=== PATIENT | male | born 1980 | race Hispanic/Latino ===

== ENCOUNTER 2016-08-25 17:24 | Emergency (ER) | payer OTHER ==
[2016-08-25 18:19] VITALS: BP 120/79; PULSE 56; RESP 20; TEMP 97.8; O2SAT 98
[2016-08-25] MEDS ORDERED: Oxycodone/Acetaminophen 5/325 mg Tab PO STA (18:36)
[2016-08-25] MEDS ORDERED: Oxycodone/Acetaminophen 5/325 mg Tab ONE (18:44)
--- NOTE | 2016-08-25 18:44 | C.PDOC ---
History Of Present Illness 36 yo male come in for evaluation of Right shoulder pain intermittent for past year, worse for past few weeks. pain is localized over Right side of neck/Right shoulder, worse with Right shoulder movement. Pt denies known trauma or injury, fever, chills, headache, dizziness, CP, SOB, dyspnea, diaphoresis, palpitation, denies weakness, sensory or vascular deficits to Right arm. Ambulate to Ed for evaluation, appears in pain. Time Seen by Provider: 08/25/16 18:08 Chief Complaint (Nursing): Upper Extremity Problem/Injury History Per: Patient History/Exam Limitations: no limitations Onset/Duration Of Symptoms: Intermittent Episodes, Other (1 year) Current Symptoms Are (Timing): Still Present Quality: "Pain" Severity: Moderate Exacerbating Factor(s): Movement Recent travel outside of the [place]: No Past Medical History Reviewed: Historical Data, Nursing Documentation, Vital Signs Vital Signs: Last Vital Signs Temp 97.8 F 08/25/16 18:14 Pulse 56 L 08/25/16 18:14 Resp 20 08/25/16 18:14 BP 120/79 08/25/16 18:14 Pulse Ox 98 08/25/16 18:53 Family History: States: Unknown Family Hx - Social History Hx Tobacco Use: No Hx Alcohol Use: Yes Hx Substance Use: No - Immunization History Hx Tetanus Toxoid Vaccination: Yes Hx Influenza Vaccination: Yes Hx Pneumococcal Vaccination: No Review Of Systems Except As Marked, All Systems Reviewed And Found Negative. Constitutional: Negative for: Fever, Chills, Other (Diaphoresis) Cardiovascular: Negative for: Chest Pain, Palpitations Respiratory: Negative for: Shortness of Breath, Other (Dyspnea) Musculoskeletal: Positive for: Shoulder Pain (Right shoulder pain). Negative for: Neck Pain, Back Pain Neurological: Negative for: Weakness, Numbness, Headache, Dizziness Physical Exam - Physical Exam Appears: Well, Non-toxic, No Acute Distress Skin: Normal Color, Warm, No Rash, No Ecchymosis Head: Normacephalic Eye(s): bilateral: PERRL Oral Mucosa: Moist Throat: Normal, No Erythema, No Exudate Neck: Normal ROM, Trachea Midline, Paracervical Tenderness (Right sided lateral neck tenderness over trapezium muscle extend down to Right upper back with mild muscle spasm. No midline tenderness.), Supple Chest: Symmetrical, No Deformity Cardiovascular: Rhythm Regular Respiratory: No Stridor, No Wheezing Back: No Vertebral Tenderness Extremity: Normal ROM (moderate discomfort on Right shoulder abduction and extension due to pain. Otherwise, FAROM of B/L UEs. No neurovascular deficits.) , Tenderness (moderate tenderness over rotator cuff muscle Right shoulder.), No Deformity, No Swelling Neurological/Psych: Oriented x3, Normal Speech, Normal Motor, Normal Sensation, Normal Reflexes ED Course And Treatment O2 Sat by Pulse Oximetry: 98 Pulse Ox Interpretation: Normal - Other Rad Right shoulder xray X-Ray: Interpreted by Me, Viewed By Me Interpretation: no acute fx or dislocation Progress Note: On re-eval, pt is aferile, hemodynamicaly stable. Non-toxic. Ambulatory in ED with stable gait. neck: (-) midline tenderness. CVS: (+)S1S2 , reg. Lungs: CTA B/L, BS equal B/L. RUE: exam c/w rotator cuff tendonitis. No neurovascular deficits, no deformity. neurologicaly intact. xray of Right shoulder review and appears normal study. Pt advised. Sling, analgesics given. re.f to f/u with Ortho in 2-3 days for re-eval. return if any new changes. Disposition Counseled Patient/Family Regarding: Studies Performed, Diagnosis, Need For Followup, Rx Given - Disposition Referrals: Joe Sandhu III, MD [Staff Provider] - [facility] [place] [Outside] [facility] [Outside] [facility] [Outside] Disposition: HOME/ ROUTINE Disposition Time: 18:46 Condition: STABLE Additional Instructions: LIGHT DUTY TO RIGHT SHOULDER/ARM AVOID HEAVY LIFTING, ETC TAKE PAIN MEDICATION PRESCRIBED NEED FOLLOW UP WITH ORTHOPEDIST IN 2-3 DAYS FOR RE-EVALUATION. RETURN TO ED IF ANY WORSENING OR NEW CHANGES. Prescriptions: Ibuprofen [Motrin Tab] 400 mg PO Q6 #14 tab Methocarbamol [Robaxin] 500 mg PO TID #14 tab traMADol [Ultram] 50 mg PO TID #7 tab Instructions: Rotator Cuff Tendinitis (ED) Forms: Work Excuse Print Language: ICELANDIC - Clinical Impression Clinical Impression: Rotator cuff tendonitis - Scribe Statement The provider has reviewed the documentation as recorded by the Scribe Sherman Loomis All medical record entries made by the Scribe were at my direction and personally dictated by me. I have reviewed the chart and agree that the record accurately reflects my personal performance of the history, physical exam, medical decision making, and the department course for this patient. I have also personally directed, reviewed, and agree with the discharge instructions and disposition.
--- NOTE | 2016-08-26 12:50 | RAD ---
PROCEDURE: Radiographs of the Right Shoulder HISTORY: pain No antecedent history of trauma provided. COMPARISON: No prior. FINDINGS: BONES: Normal. No fracture. JOINTS: Normal. Glenohumeral and acromioclavicular joints preserved. No osteoarthritis. SOFT TISSUES: Normal. OTHER FINDINGS: None. IMPRESSION: Normal radiographs of the right shoulder. Concordant results with the preliminary interpretation rendered by the emergency department physician procedure.
== END 2016-08-25 19:10 | disposition home or self-care (01) ==
LOC: C.ER 17:24
DX: M77.9 Enthesopathy, unspecified (principal)

== ENCOUNTER 2018-01-11 17:21 | Emergency (ER) | payer SELFPAY ==
[2018-01-11 17:44] VITALS: BMI 29.4
[2018-01-11 17:46] VITALS: RESP 18
[2018-01-11 18:39] LABS: SQUAMOUS EPITHIAL < 1 /hpf (0-5); URINE BILIRUBIN NEGATIVE (NEGATIVE); URINE BLOOD NEGATIVE (NEGATIVE); URINE CLARITY Clear (Clear); URINE COLOR Yellow (YELLOW); URINE GLUCOSE (UA) NORMAL (Normal); URINE LEUKOCYTE ESTERASE NEG Leu/uL (Negative); URINE PROTEIN NEGATIVE (NEGATIVE); URINE UROBILINOGEN NORMAL mg/dL (0.2-1.0)
[2018-01-11] MEDS ORDERED: Sodium Chloride 0.9% 1,000 ML IV ONE (19:10)
[2018-01-11 19:30] LABS: BASO % 0.6 % (0.0-2.0); EOS % 0.7 % (0.0-4.0); LYMPH # 2.2 K/uL (1.0-4.3); LYMPH % 35.5 % (20.0-40.0); MEAN CELL VOLUME 87.4 fL (80.0-94.0); MEAN CORPUSCULAR HEMOGLOBIN 30.5 pg (27.0-31.0); MEAN CORPUSCULAR HGB CONC 34.8 g/dL (33.0-37.0); MEAN PLATELET VOLUME 8.8 fL (7.2-11.7); MONO # 0.5 K/uL (0.0-0.8); MONO % 7.8 % (0.0-10.0); NEUT # 3.4 K/uL (1.8-7.0); NEUT % 55.4 % (50.0-75.0); NRBC % 0.1 % (0.0-2.0); RBC 4.61 Mil/uL (4.40-5.90); RED CELL DISTRIBUTION WIDTH 13.5 % (11.5-14.5); WHITE BLOOD COUNT 6.1 K/uL (4.8-10.8)
[2018-01-11 19:44] LABS: ALB/GLOB RATIO 1.7 (1.0-2.1); ALBUMIN 4.6 g/dL (3.5-5.0); ALT/SGPT 28 U/L (21-72); AST/SGOT 32 U/L (17-59); BLOOD UREA NITROGEN 15 mg/dL (9-20); CALCIUM 9.1 mg/dl (8.6-10.4); GFR NON-AFRICAN AMERICAN > 60; LIPASE 92 U/L (23-300)
[2018-01-11] MEDS ORDERED: Iohexol 300 100 ML IJ ONE (20:07)
--- NOTE | 2018-01-11 21:16 | C.PDOC ---
History Of Present Illness 37 y/o male presents to the ED complaining of abdominal pain for past couple weeks. Pain is localized to the left lower quadrant. He denies any associated nausea, vomiting, diarrhea, hematuria, hematochezia, or fever. No recent travel. No sick contacts. Time Seen by Provider: 01/11/18 19:05 Chief Complaint (Nursing): Abdominal Pain History Per: Patient History/Exam Limitations: no limitations Onset/Duration Of Symptoms: Days Current Symptoms Are (Timing): Still Present Location Of Pain/Discomfort: LLQ Alleviating Factors: None Past Medical History Reviewed: Historical Data, Nursing Documentation, Vital Signs Vital Signs: Last Vital Signs Temp 98.2 F 01/11/18 17:44 Pulse 58 L 01/11/18 17:44 Resp 18 01/11/18 17:44 BP 118/77 01/11/18 17:44 Pulse Ox 98 01/11/18 17:44 Family History: States: Unknown Family Hx - Social History Hx Tobacco Use: No Hx Alcohol Use: Yes Hx Substance Use: No - Immunization History Hx Tetanus Toxoid Vaccination: Yes Hx Influenza Vaccination: Yes Hx Pneumococcal Vaccination: No Review Of Systems Except As Marked, All Systems Reviewed And Found Negative. Constitutional: Negative for: Fever, Chills Gastrointestinal: Positive for: Abdominal Pain. Negative for: Nausea, Vomiting, Diarrhea, Hematochezia Genitourinary: Negative for: Dysuria, Hematuria Physical Exam - Physical Exam Appears: Non-toxic, No Acute Distress Skin: Warm, Dry Head: Atraumatic, Normacephalic Eye(s): bilateral: Normal Inspection, PERRL, EOMI Oral Mucosa: Moist Neck: Normal ROM Chest: Symmetrical Cardiovascular: Rhythm Regular, No Murmur Respiratory: Normal Breath Sounds, No Rhonchi, No Wheezing Gastrointestinal/Abdominal: Soft, Tenderness (mild LLQ tenderness), No Guarding, No Rebound Extremity: Bilateral: Atraumatic, Normal Color And Temperature, Normal ROM Neurological/Psych: Oriented x3, Normal Speech Gait: Steady ED Course And Treatment - Laboratory Results Result Diagrams: 01/11/18 19:25 01/11/18 19:25 O2 Sat by Pulse Oximetry: 98 (RA) Pulse Ox Interpretation: Normal - CT Scan/US CT ABD/PELVIS Other Rad Studies (CT/US): Read By Radiologist, Radiology Report Reviewed CT/US Interpretation: FINDINGS: LUNG BASES: The lung bases appear clear. No pleural effusions are seen. LIVER: Unremarkable. GALLBLADDER AND BILE DUCTS: The gallbladder appears within normal limits. No radioopaque gallstones are seen. No biliary ductal dilatation is evident. PANCREAS: Unremarkable. SPLEEN: Unremarkable. ADRENAL GLANDS: Unremarkable. KIDNEYS, URETERS, AND BLADDER: The kidneys appear within normal limits. There is no hydronephrosis or hydroureter. No urinary calculi are seen. Bilateral extrarenal pelvi. STOMACH AND BOWEL: Thick walled fluid filled ileum compatible with enteritis. Infectious and inflammatory etiologies are considered. APPENDIX: No evidence of acute appendicitis on CT examination. PERITONEUM: No free fluid. No free air. LYMPH NODES: No lymphadenopathy is evident. REPRODUCTIVE: Unremarkable as visualized. VASCULATURE: No evidence of abdominal aortic aneurysm. BONES: No aggressive appearing osseous lesion. No acute osseous pathology evident. IMPRESSION: Thick walled fluid filled ileum compatible with enteritis. Infectious and inflammatory etiologies are considered. Medical Decision Making Medical Decision Making: Impression: LLQ pain Initial Plan: --CMP --Lipase --CBC --Urinalysis --IV fluids --Pepcid 20 mg IVP --Toradol 30 mg IVP --CT Abd/Pelvis with IV contrast CT findings discussed with patient. Disposition - Disposition Referrals: [facility] [Outside] [facility] [Outside] Disposition: HOME/ ROUTINE Disposition Time: 21:15 Condition: GOOD Additional Instructions: MANINDER ROMAN, thank you for letting us take care of you today. The emergency medical care you received today was directed at your acute symptoms. If you were prescribed any medication, please fill it and take as directed. It may take several days for your symptoms to resolve. Return to the Emergency Department if your symptoms worsen, do not improve, or if you have any other problems. Please contact your doctor or call one of the physicians/clinics you have been referred to that are listed on the Patient Visit Information form that is included in your discharge packet. Bring any paperwork you were given at discharge with you along with any medications you are taking to your follow up visit. Our treatment cannot replace ongoing medical care by a primary care provider outside of the emergency department. Thank you for allowing the [facility] team to be part of your care today. Follow up with the clinic this week for outpatient care and re-evaluation. MANINDER ROMAN, bertha por dejarnos cuidar de usted hoy. La atencin mdica de emergencia que recibi hoy se dirigi a christina sntomas agudos. Si le recetaron algn medicamento, llnelo y tmelo segn las indicaciones. Los sntomas pueden tardar varios tapia en resolverse. Regrese al Departamento de Emergencias si christina sntomas empeoran, no mejoran o si tiene otros problemas. Comunquese con shipley mdico o llame a meek de los mdicos / clnicas a los que rosario sido referido que figuran en el formulario de Informacin de visita al paciente que se incluye en shipley paquete de jeremy. Lleve con usted a shipley consulta de seguimiento toda la documentacin que recibi del jeremy junto con los medi camentos que est tomando. Nuestro tratamiento no puede reemplazar la atencin mdica continua por parte de un proveedor de atencin primaria fuera del departamento de emergencias. Bertha por permitir que el equipo de [facility] sea parte de shipley atencin hoy. Dre un seguimiento con la clnica esta semana para la atencin ambulatoria y la reevaluacin. Prescriptions: Ciprofloxacin [Cipro] 500 mg PO BID #14 tab Ibuprofen [Motrin] 600 mg PO Q6 PRN #20 tab PRN Reason: Pain, Moderate (4-7) metroNIDAZOLE [Flagyl] 500 mg PO Q8 #21 tab Instructions: Acute Abdomen (Belly Pain), Adult (DC) Forms: Gen Discharge Inst Arabic, [employer] (Arabic) Print Language: GUATEMALAN - Clinical Impression Clinical Impression: Abdominal pain - Scribe Statement The provider has reviewed the documentation as recorded by the Scribe (Aline Wang) Provider Attestation: All medical record entries made by the Scribe were at my direction and personally dictated by me. I have reviewed the chart and agree that the record accurately reflects my personal performance of the history, physical exam, medi rula decision making, and the department course for this patient. I have also personally directed, reviewed, and agree with the discharge instructions and disposition.
[2018-01-11 21:41] VITALS: BP 112/68; PULSE 50; TEMP 98.7
--- NOTE | 2018-01-12 07:42 | CT ---
Date of service: 01/11/2018 PROCEDURE: CT Abdomen and Pelvis with intravenous contrast HISTORY: Left-sided abdominal pain COMPARISON: None. TECHNIQUE: Multiple contiguous axial images were performed through the abdomen and pelvis with the use of intravenous contrast. Subsequently, sagittal and coronal reformatted images were obtained. Radiation dose: Total exam DLP = 366 mGy-cm. This CT exam was performed using one or more of the following dose reduction techniques: Automated exposure control, adjustment of the mA and/or kV according to patient size, and/or use of iterative reconstruction technique. FINDINGS: LOWER THORAX: Scattered atelectasis at the lung bases. LIVER: 1.2 centimeter rounded enhancing lesion seen within the right hepatic lobe on series 3, image 37 demonstrating a Hounsfield unit attenuation of 122. This is of uncertain clinical etiology. Further evaluation with multiphasic contrast enhanced CT or MRI is recommended if clinically indicated. GALLBLADDER AND BILE DUCTS: Contracted gallbladder. PANCREAS: Unremarkable. No gross lesion or ductal dilatation. SPLEEN: Unremarkable. ADRENALS: Unremarkable. No mass. KIDNEYS AND URETERS: Fullness of the right renal collecting system and right ureter which may be related to an extrarenal pelvis versus mild hydronephrosis. Clinical correlation. Fullness of the left renal collecting system suggestive for extrarenal pelvis versus mild hydronephrosis. Clinical correlation. No gross calculi visualized. VASCULATURE: Unremarkable. No aortic aneurysm. BOWEL: Thick-walled fluid filled ileum compatible with enteritis. Infectious and inflammatory etiologies are considered. Under distended sigmoid colon. APPENDIX: No findings to suggest acute appendicitis. PERITONEUM: Unremarkable. No free fluid. No free air. LYMPH NODES: Unremarkable. No enlarged lymph nodes. BLADDER: Unremarkable. REPRODUCTIVE: Unremarkable. BONES: No acute fracture. OTHER FINDINGS: None. IMPRESSION: 1. Thick walled fluid filled ileum compatible with enteritis. Infectious and inflammatory etiologies are considered. Underdistended sigmoid colon. Clinical correlation. 2. Fullness of the right renal collecting system and right ureter which may be related to an extrarenal pelvis versus mild hydronephrosis. Fullness of the left renal collecting system suggestive for extrarenal pelvis versus mild hydronephrosis. Clinical correlation. 3. 1.2 centimeter rounded enhancing lesion seen within the right hepatic lobe on series 3, image 37 demonstrating a Hounsfield unit attenuation of 122. This is of uncertain clinical etiology. Further evaluation with multiphasic contrast enhanced CT or MRI is recommended if clinically indicated. These findings were preliminarily reported at 8:59 p.m. on 01/11/[address] Moses Gardner from [employer].
[2018-01-13 02:19] VITALS: O2SAT 98
== END 2018-01-11 21:47 | disposition home or self-care (01) ==
LOC: C.ER 17:21
DX: R10.32 Left lower quadrant pain (principal)
CPT/HCPCS: 74177; 80053; 81001; 83690; 85025; 96374; 96375; 99284; J1885; J7030; Q9967